=== PATIENT | male | born 1960 | race Caucasian/White ===

== ENCOUNTER 2019-11-09 05:27 | Emergency (ER) | payer MEDICAID ==
[~2019-11-09] VITALS: Ht 165.1 cm; Wt 113.4 kg
--- NOTE | 2019-11-09 05:35 | Emergency Room Report ---
History of Present Illness General Chief Complaint: Shortness of breath Source: Patient, EMS Present Illness HPI Disclaimer: Please note that this report is being documented using DRAGON technology. This can lead to erroneous entry secondary to incorrect interpretation by the dictating instrument. HPI: 59-year-old male presents for evaluation of shortness of breath. EMS was called to get the patient on the street he was originally complaining of bilateral calf cramping and swelling. Noted shortness of breath for 1 day without cough or fever. He seemed altered and somewhat confused and he was brought in for evaluation. He notes worsening shortness of breath but denies chest pain, nausea, vomiting, diarrhea, fever, backache, chest pressure or other changes in his health. He is a daily tobacco user and has a history of asthma, COPD but does not use inhalers. Does not know whether or not he has CHF. Denies prior history of CAD. Vital signs were stable en route per EMS. He was saturating 95% on room air. PMH: Diabetes, hypertension, asthma PSH: Abdominal hernia repair Allergies: Haldol Social Hx: Daily tobacco use Allergies: Coded Allergies: HALOPERIDOL (Verified Allergy, Unknown, 11/09/19) Review of Systems All Other Systems: negative except mentioned in HPI Physical Exam General: Somnolent but arousable to voice, disheveled, unkempt HEENT: NC/AT. EOMI. Cardiovascular: RRR. S1 and S2 normal Resp: Normal work of breathing. No cough, wheezing or crackles appreciated Abdomen: Abdomen is soft, nondistended. Obese abdomen. Nontender Skin: Intact. Large midline abdominal scar clean dry and intact. Area of erythema without edema over the lower pannus folds. No skin breakdown, no vesicles, no skin sloughing, no purulence. MSK: Normal tone and bulk. Moving all extremities. No obvious deformity. 3+ lower extremity pitting edema. Neuro: Drowsy, arousable to voice. Answering questions appropriately when awake but easily falls asleep. Medical Decision Making Diagnostic Impression: Primary Impression: Dermatitis Additional Impression: Left against medical advice ER Course 59-year-old male history of asthma/COPD, daily tobacco use, hypertension diabetes presents for evaluation of 1 day shortness of breath and lower extremity swelling. Differential includes was not limited to CHF exacerbation, asthma expiration, COPD exacerbation, bronchitis, pneumonia, viral syndrome, GERD, ACS, arrhythmia, electrolyte abnormality, intoxication, behavioral disorder. Will obtain EKG, chest x-ray, broad labs including tox screen. Patient saturating well on room air in no respiratory distress. EKG Diagnostic Results EKG Time: :31 Rate: normal Rhythm: NSR ST Segments: no acute changes Other Impression Sinus rhythm, left axis, normal intervals, no ST segment changes Rhythm Strip Diag. Results Rhythm Strip Time: :31 EP Interpretation: yes Rate: 80s Rhythm: NSR, no PVC's, no ectopy Reevaluation Time: 06:07 Reevaluation Impression Alerted by nursing staff that the patient wanted to leave the hospital. He did not like the way that they were inserting the IV line. Initially I was able to redirect the patient to stay for medical evaluation but then he changed his mind again and chose to leave AGAINST MEDICAL ADVICE. I explained to them that without a full medical evaluation he may have a life-threatening medical emergency that we are not yet aware of. Explained that he is running the risk of permanent disability or even if he leaves the hospital without medical evaluation. He elected to leave at this time. Ambulated under his own power with a steady gait using his cane. A tube of hydrocortisone cream was provided to him to use for his rash. Advised to return with new or worsening symptoms Disposition: AGAINST MEDICAL ADVICE Condition: Stable Scripts Unable to Obtain Active Prescriptions or Reported Meds Ananda Gomez MD November 09, 2019 05:35
--- NOTE | 2019-11-09 05:57 | NUR ---
ED Nurse Note: Patient brought in by ambulance RA29 d/t leg cramps, lower abdominal skin redness/itching, and SOB. Patient aao x 4 and ambulatory. Patient placed on quality assurance monitor body. No acute distress noted.
[2019-11-09 05:58] VITALS: BP 123/73
[2019-11-09] MEDS ORDERED: Triamcinolone 0.1% 15gm Cr TOPIC ONE (06:00)
--- NOTE | 2019-11-09 06:00 | NUR ---
ED Nurse Note: Patient has history of hernia surgery on abdomen.
--- NOTE | 2019-11-09 06:08 | NUR ---
AMA: SEE AMA FORM.
[2019-11-09 06:13] LABS: BASOPHILS % (AUTO) 1.5 % (0.0-2.0); EOSINOPHILS % (AUTO) 2.7 % (0.0-3.0); HEMATOCRIT 40.2 % (42.0-52.0); HEMOGLOBIN 12.7 G/DL (14.2-18.0); LYMPHOCYTES % (AUTO) 12.8 % (20.0-45.0); MEAN CORPUSCULAR VOLUME 75 FL (80-99); MONOCYTES % (AUTO) 8.4 % (1.0-10.0); NEUTROPHILS % (AUTO) 74.5 % (45.0-75.0); PLATELET COUNT 200 K/UL (150-450); RED BLOOD COUNT 5.39 M/UL (4.70-6.10); RED CELL DISTRIBUTION WIDTH 21.9 % (11.6-14.8); WHITE BLOOD COUNT 8.5 K/UL (4.8-10.8)
[2019-11-09 06:29] LABS: ANION GAP 5 mmol/L (5-15); BLOOD UREA NITROGEN 20 mg/dL (7-18); CALCIUM 8.4 MG/DL (8.5-10.1); CARBON DIOXIDE 34 MMOL/L (21-32); CHLORIDE 101 MMOL/L (98-107); CREATININE 0.8 MG/DL (0.55-1.30); POTASSIUM 3.8 MMOL/L (3.5-5.1); SODIUM 140 MMOL/L (136-145)
[2019-11-09 06:40] LABS: ALANINE AMINOTRANSFERASE 28 U/L (12-78); ALBUMIN 3.5 G/DL (3.4-5.0); ALBUMIN/GLOBULIN RATIO 0.9 (1.0-2.7); ALKALINE PHOSPHATASE 81 U/L (46-116); ASPARTATE AMINO TRANSFERASE 25 U/L (15-37); BILIRUBIN,TOTAL 0.5 MG/DL (0.2-1.0)
== END 2019-11-09 06:08 | disposition left against medical advice (07) ==
LOC: EDBD 05:27 → EMR 05:41
DX: L30.9 Dermatitis, unspecified (principal); J44.9 Chronic obstructive pulmonary disease, unspecified; R22.43 Localized swelling, mass and lump, lower limb, bilateral; E11.9 Type 2 diabetes mellitus without complications; I10 Essential (primary) hypertension; Z88.8 Allergy status to other drugs, medicaments and biological substances; E66.9 Obesity, unspecified
CPT/HCPCS: 36415; 80053; 83880; 84484; 85025; 93005; G0480; Z7502; 99283